=== PATIENT | female | born 1945 | race American Indian/Alaskan Native ===

== ENCOUNTER 2017-04-27 10:36 | Outpatient (CLI) | payer MEDICARE ==
--- NOTE | 2017-04-28 16:10 | Mammography Report ---
BILATERAL DIGITAL SCREENING MAMMOGRAM with CAD: 04/27/17 10:36:00 CLINICAL: Routine screening. COMPARISON:None available. FINDINGS: The breasts are heterogeneously dense, which may obscure small masses. Left asymmetries require additional imaging.No architectural distortion or suspicious calcifications.The right breast is negative. IMPRESSION: Left asymmetries requiring further workup. BI-RADS CATEGORY: 0 -- Additional Imaging Evaluation Required RECOMMENDATION: Recall for left mediolateral and spot compression MLO and CC views and left breast ultrasound if needed. ACR BI-RADS MAMMOGRAPHIC CODES: 0 = Needs additional imaging evaluation; 1 = Negative; 2 = Benign; 3 = Probably benign; 4 = Suspicious; 5 = Malignant; 6 = Known biopsy-proven malignancy COMMENT: 1. Dense breast tissue, i.e., adenosis, fibrocystic changes, etc., may obscure an underlying neoplasm. 2. Approximately 10% of cancers are not detected with mammography. 3. A negative mammography report should not delay biopsy if a clinically suspicious mass is present. COMMENT: Patient follow-up letters are generated via our [employer] application.
== END 2017-04-27 10:37 | disposition home or self-care (01) ==
LOC: SPVWC 10:36
PROVIDERS: ATTEND Physician Assistant
DX: Z12.31 Encounter for screening mammogram for malignant neoplasm of breast (principal)
CPT/HCPCS: 77067; G0202

== ENCOUNTER 2017-05-11 10:49 | Outpatient (CLI) | payer MEDICARE ==
--- NOTE | 2017-05-11 12:08 | Mammography Report ---
LEFT DIGITAL DIAGNOSTIC MAMMOGRAM and LEFT BREAST ULTRASOUND: 05/11/17 10:49:00 CLINICAL: Recalled for asymmetries. COMPARISON:04/27/17 screening FINDINGS: ML and spot compression MLO and CC views were performed. Several subcentimeter low-density circumscribed asymmetries persist with spot compression. Ultrasound of the left breast (including all four quadrants and the retroareolar area) was performed and demonstrated several probable benign cysts. A cyst with low level internal echoes at 5 o'clock 3 cm from the nipple measures 6 x 4 x 5 mm. An oval cyst at 9 o'clock 3 cm from the nipple measures 5 x 3 x 5 mm. Color Doppler demonstrates blood flow at the margin of the cyst. A slightly irregular retroareolar cyst measures 4 x 3 x 4 mm. Lymph nodes in the left axilla has central fat and benign morphology. They measure 1.7 x 1.2 x 0.6 cm and 1.1 x 0.8 x 0.6 cm. IMPRESSION: Probable benign cysts BI-RADS CATEGORY: 3 - - Probably Benign RECOMMENDATION: Six month followup left mammogram and left breast ultrasound. ACR BI-RADS MAMMOGRAPHIC CODES: 0 = Needs additional imaging evaluation; 1 = Negative; 2 = Benign; 3 = Probably benign; 4 = Suspicious; 5 = Malignant; 6 = Known biopsy-proven malignancy COMMENT: 1. Dense breast tissue, i.e., adenosis, fibrocystic changes, etc., may obscure an underlying neoplasm. 2. Approximately 10% of cancers are not detected with mammography. 3. A negative mammography report should not delay biopsy if a clinically suspicious mass is present. COMMENT: Patient follow-up letters are generated via our [employer] application.
== END 2017-05-11 10:50 | disposition home or self-care (01) ==
LOC: SPVWC 10:49
PROVIDERS: ATTEND Internal Medicine
DX: N60.02 Solitary cyst of left breast (principal)
CPT/HCPCS: 76641; G0206

== ENCOUNTER 2018-06-09 10:01 | Outpatient (CLI) | payer MEDICARE ==
--- NOTE | 2018-06-10 13:05 | Ultrasound Report ---
BILATERAL DIGITAL DIAGNOSTIC MAMMOGRAM with CAD and LEFT BREAST ULTRASOUND: 06/09/18 CLINICAL: Followup left asymmetries and probable benign left breast cysts. Routine screening of the right breast. COMPARISON:05/11/17 left mammogram and targeted left breast ultrasound and 04/27/17 bilateral screening mammogram. FINDINGS: Breasts are heterogeneously dense, which may obscure small masses. The fibroglandular pattern is stable and the previously described low density circumscribed asymmetries are unchanged..No mass, architectural distortion or suspicious calcifications . . Targeted ultrasound the left breast was performed to reevaluate the cyst at 9 o'clock 3 cm from the nipple. Blood flow was identified at the margin of the cyst on the last exam but is not apparent on this exam. The cyst measures 4 x 3 x 2 mm compared to 5 x 3 x 5 mm. No solid mass or shadowing. IMPRESSION: Negative mammogram and benign left breast cysts. BI-RADS CATEGORY: 2 -- Benign RECOMMENDATION: Return to routine mammographic screening. ACR BI-RADS MAMMOGRAPHIC CODES: 0 = Needs additional imaging evaluation; 1 = Negative; 2 = Benign; 3 = Probably benign; 4 = Suspicious; 5 = Malignant; 6 = Known biopsy-proven malignancy COMMENT: 1. Dense breast tissue, i.e., adenosis, fibrocystic changes, etc., may obscure an underlying neoplasm. 2. Approximately 10% of cancers are not detected with mammography. 3. A negative mammography report should not delay biopsy if a clinically suspicious mass is present. COMMENT: Patient follow-up letters are generated by our [employer] application.
== END 2018-06-09 10:02 | disposition home or self-care (01) ==
LOC: SPVWC 10:01
PROVIDERS: ATTEND Internal Medicine
DX: R92.8 Other abnormal and inconclusive findings on diagnostic imaging of breast (principal)
CPT/HCPCS: 77066

== ENCOUNTER 2019-07-04 14:45 | Outpatient (CLI) | payer MEDICARE ==
--- NOTE | 2019-07-05 16:00 | Mammography Report ---
DIGITAL SCREENING MAMMOGRAM WITH CAD, 07/04/2019 INDICATION: Routine screening mammography. TECHNIQUE: Digital bilateral 2D mammography was obtained in the craniocaudal and mediolateral obliq ue projections. This examination was interpreted with the benefit of Computer-Aided Detection analysi s. COMPARISON: 06/09/2018 FINDINGS: Breast Density: The breasts are heterogeneously dense, which may obscure small masses. There is no evidence of dominant mass, suspicious calcifications or architectural distortion in eithe r breast. IMPRESSION: No mammographic evidence of malignancy. Follow up recommendation: Routine yearly BI-RADS Category 2: Benign. A "normal" or negative report should not discourage follow up or biopsy of a clinically significant f inding. A written summary of these findings will be mailed to the patient. The patient will be entered into a mammography reporting system which will generate a reminder letter for the patient's next appointmen t at the appropriate interval. The [employer] recommends yearly mammograms starting at age 40 and continuing as l comfort as a woman is in good health. Breast MRI is recommended for women with an approximate 20-25% or greater lifetime risk of breast cancer, including women with a strong family history of breast or ova alfredo cancer or who have been treated for Hodgkin's disease. Signer Name: Kale Bernard MD Signed: 07/05/2019 3:56 PM Workstation Name: [id number]
== END 2019-07-04 14:46 | disposition home or self-care (01) ==
LOC: SPVWC 14:45
PROVIDERS: ATTEND Family Medicine
DX: Z12.31 Encounter for screening mammogram for malignant neoplasm of breast (principal)
CPT/HCPCS: 77067

== ENCOUNTER 2021-06-28 11:27 | Outpatient (CLI) | payer MEDICARE ==
--- NOTE | 2021-06-30 08:26 | Mammography Report ---
DIGITAL SCREENING MAMMOGRAM WITH CAD, 06/28/2021 CLINICAL INFORMATION / INDICATION: Routine screening mammography. SCREENING MAMMOGRAM TECHNIQUE: Digital bilateral 2D mammography was obtained in the craniocaudal and mediolateral obliqu e projections. This examination was interpreted with the benefit of Computer-Aided Detection analysis . COMPARISON: July 04, 2019, June 09, 2018 and April 27, 2017 FINDINGS: Breast Density: There are scattered areas of fibroglandular density. No dominant mass, suspicious calcifications, or architectural distortion in either breast. IMPRESSION: No mammographic evidence of malignancy. Follow up recommendation: Routine yearly BI-RADS Category 1: Negative. A "normal" or negative report should not discourage follow up or biopsy of a clinically significant f inding. A written summary of these findings will be mailed to the patient. The patient will be entered into a mammography reporting system which will generate a reminder letter for the patient's next appointmen t at the appropriate interval. The [employer] recommends yearly mammograms starting at age 40 and continuing as l comfort as a woman is in good health. Breast MRI is recommended for women with an approximate 20-25% or greater lifetime risk of breast cancer, including women with a strong family history of breast or ova alfredo cancer or who have been treated for Hodgkin's disease. Signer Name: Angel Krishna DO Signed: 06/30/2021 8:22 AM Workstation Name: [id number]
== END 2021-06-28 11:28 | disposition home or self-care (01) ==
LOC: SPVWC 11:27
PROVIDERS: ATTEND Family Medicine
DX: Z12.31 Encounter for screening mammogram for malignant neoplasm of breast (principal)
CPT/HCPCS: 77067